=== PATIENT | female | born 1975 ===

== ENCOUNTER 2020-07-07 04:32 | Emergency (ER) | payer SELFPAY, OTHER ==
[2020-07-07] MEDS ORDERED: IPRATROPIUM BROM 0.5MG/2.5ML ONE (05:04)
[2020-07-07] MEDS ORDERED: predniSONE 20 MG TAB ONE (05:05)
[2020-07-07] MEDS ORDERED: ALBUTEROL 2.5 MG/3 ML NEB SOL ONE (05:05)
--- NOTE | 2020-07-07 06:48 | ER ---
Nurse's Notes [facility] Name: Alva Ritchie Age: 45 yrs Sex: Female : 1975 Arrival Date: 07/07/2020 Time: 04:35 Bed 7 Private MD: Diagnosis: Asthma Exacerbation;Bronchitis Presentation: 07/07 04:39 Chief complaint: EMS states: patient complaint of difficulty of breathing started rr5 tonight, she took albuterol puff but did not relieved. positive wheezing sound A\T\A treatment given. Coronavirus screen: Client denies travel out of the [place] in the last 14 days. congestion, cough unrelated to allergies, difficulty breathing, Client presents with at least one sign or symptom that may indicate coronavirus-19. Standard/surgical mask placed on the client. Provider contacted for isolation considerations. Ebola Screen: Patient negative for fever greater than or equal to 101.5 degrees Fahrenheit, and additional compatible Ebola Virus Disease symptoms Patient denies exposure to infectious person. Patient denies travel to an Ebola-affected area in the 21 days before illness onset. Initial Sepsis Screen: Does the patient meet any 2 criteria? HR > 90 bpm. Yes Does the patient have a suspected source of infection? Yes: Productive cough/pneumonia. Risk Assessment: Do you want to hurt yourself or someone else? Patient reports no desire to harm self or others. Onset of symptoms was July 06, 2020. Care prior to arrival: Medication(s) given: Albuterol Neb Atrovent Neb. 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 - Social history:: Smoking status: Patient reports the use of cigarette tobacco products, 5 sticks/day, Patient uses street drugs, Methamphetamine (Meth) opioids last taken apr 11, Patient/guardian denies using alcohol. Screenin:00 Abuse screen: Denies threats or abuse. Denies injuries from another. Nutritional rr5 screening: No deficits noted. Tuberculosis screening: No symptoms or risk factors identified. Fall Risk None identified. Total Santiago Fall Scale indicates No Risk (0-24 pts). Assessment: 04:39 General: Appears in no apparent distress. comfortable, Behavior is calm, cooperative, rr5 appropriate for age. 04:39 Pain: Complains of pain in chest Pain currently is 5 out of 10 on a pain scale. Quality rr5 of pain is described as aching, Pain began gradually, Is intermittent. Neuro: Level of Consciousness is awake, alert, obeys commands, Oriented to person, place, time. Cardiovascular: Reports chest pain, chest congestion Capillary refill < 3 seconds Patient's skin is warm and dry. Respiratory: Reports cough that is congestion Airway is patent Respiratory effort is even, unlabored, Respiratory pattern is regular, symmetrical. GI: No signs and/or symptoms were reported involving the gastrointestinal system. : No signs and/or symptoms were reported regarding the genitourinary system. EENT: Reports pain in throat. Derm: Skin is intact, is healthy with good turgor, Skin temperature is warm. Musculoskeletal: Circulation, motion, and sensation intact. Capillary refill < 3 seconds. 05:10 Reassessment: Patient appears in no apparent distress at this time. Patient is alert, rr5 oriented x 3, equal unlabored respirations, skin warm/dry/pink. awaiting for results. 06:03 Reassessment: Patient and/or family updated on plan of care and expected duration. Pain ea level reassessed. Patient is alert, oriented x 3, equal unlabored respirations, skin warm/dry/pink. 06:58 Reassessment: Patient and/or family updated on plan of care and expected duration. Pain ea level reassessed. Patient is alert, oriented x 3, equal unlabored respirations, skin warm/dry/pink. Discharge instruction given to patient, verbalized the understanding of instruction. 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 07:53 Reassessment: [facility] on the way to metal pickling equipment operator pt. jl7 Vital Signs: 04:39 BP 111 / 82; Pulse 95; Resp 19; Temp 97.9; Pulse Ox 99% ; Weight 63.5 kg; Height 5 ft. rr5 6 in. (167.64 cm); Pain 5/10; 05:45 BP 116 / 71; Pulse 118; Resp 18; Pulse Ox 100% on R/A; rr5 06:03 BP 122 / 72; Pulse 105; Resp 18; Pulse Ox 99% on R/A; ea 06:53 BP 112 / 71; Pulse 88; Resp 18; Pulse Ox 98% on R/A; ea 04:39 Body Mass Index 22.60 (63.50 kg, 167.64 cm) rr5 ED Course: 04:35 Patient arrived in ED. ea 04:38 Brandon Higuera, RN is Primary Nurse. rr5 04:40 Cruz Blankenship MD is Attending Physician. 7 04:45 Triage completed. rr5 04:49 Arm band placed on left wrist. rr5 05:00 Patient has correct armband on for positive identification. Bed in low position. Call rr5 light in reach. Pulse ox on. NIBP on. 05:10 Flu and/or RSV swab sent to lab. Strep swab sent to lab. rr5 05:58 No provider procedures requiring assistance completed. rr5 06:59 Patient did not have IV access during this emergency room visit. ea Administered Medications: 04:50 Not Given (Duplicate Order): Albuterol 2.5 mg Inhalation once mg2 05:07 Drug: predniSONE 60 mg Route: PO; ea 06:16 Follow up: Response: No adverse reaction rr5 05:07 Drug: Albuterol - atroVENT (3:1) (2.5 mg - 0.5 mg) 3 ml Route: Nebulizer; ea 06:16 Follow up: Response: No adverse reaction rr5 Outcome: 06:47 Discharge ordered by . [facility] 06:59 Condition: stable ea 06:59 Discharge instructions given to patient, Instructed on discharge instructions, follow up and referral plans. medication usage, Demonstrated understanding of instructions, follow-up care, medications, Prescriptions given X 3. 07:54 Discharged to Rehab Facility jl7 07:56 Patient left the ED. jl7 Signatures: Sonali Velazquez RN RN 7 Varsha Chávez RN RN ea Roque, Raymond, RN RN rr5 Cruz Blankenship MD MD 7 Jeison Hill RN mg2
--- NOTE | 2020-07-07 06:48 | EDPHYS ---
Physician Documentation [facility] Name: Alva Ritchie Age: 45 yrs Sex: Female : 1975 Arrival Date: 07/07/2020 Time: 04:35 Bed 7 Private MD: ED Physician Cruz Blankenship HPI: 07/07 04:52 This 45 yrs old Female presents to ER via EMS with complaints of Wheezing. Asthma mh7 Exacerbation.. 05:05 The patient presents to the emergency department with wheezing, Current therapy: mh7 albuterol inhaler, that began after exposure to pollen, after exposure to smoke, the patient was reported to have audible wheezing, productive cough, Pre-hospital care: Vilma wallace. Onset: The symptoms/episode began/occurred yesterday. Modifying factors: The symptoms are alleviated by inhaler, the symptoms are aggravated by pollen, smoke. Associated signs and symptoms: Pertinent negatives: chest pain, choking, fever, headache, nausea, palpitations, rash, vomiting. Severity of symptoms: At their worst the symptoms were moderate last night, in the emergency department the symptoms have improved moderately. The patient has experienced similar episodes in the past, multiple times. 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 - Social history:: Smoking status: Patient reports the use of cigarette tobacco products, 5 sticks/day, Patient uses street drugs, Methamphetamine (Meth) opioids last taken apr 11, Patient/guardian denies using alcohol. ROS: 05:05 Constitutional: Negative for fever, chills, and weight loss, Eyes: Negative for injury, mh7 pain, redness, and discharge. 05:05 Neck: Negative for injury, pain, and swelling, Cardiovascular: Negative for chest pain, palpitations, and edema, Abdomen/GI: Negative for abdominal pain, nausea, vomiting, diarrhea, and constipation, Back: Negative for injury and pain, : Negative for injury, bleeding, discharge, and swelling, MS/Extremity: Negative for injury and deformity, Skin: Negative for injury, rash, and discoloration, Neuro: Negative for headache, weakness, numbness, tingling, and seizure, Psych: Negative for depression, anxiety, suicide ideation, homicidal ideation, and hallucinations, Allergy/Immunology: Negative for hives, rash, and allergies, Endocrine: Negative for neck swelling, polydipsia, polyuria, polyphagia, and marked weight changes, Hematologic/Lymphatic: Negative for swollen nodes, abnormal bleeding, and unusual bruising. 05:05 ENT: Positive for nasal discharge, sore throat. Exam: 05:05 Constitutional: This is a well developed, well nourished patient who is awake, alert, mh7 and in no acute distress. Head/Face: Normocephalic, atraumatic. Eyes: Pupils equal round and reactive to light, extra-ocular motions intact. Lids and lashes normal. Conjunctiva and sclera are non-icteric and not injected. Cornea within normal limits. Periorbital areas with no swelling, redness, or edema. 05:05 Neck: Trachea midline, no thyromegaly or masses palpated, and no cervical lymphadenopathy. Supple, full range of motion without nuchal rigidity, or vertebral point tenderness. No Meningismus. Chest/axilla: Normal chest wall appearance and motion. Nontender with no deformity. No lesions are appreciated. Cardiovascular: Regular rate and rhythm with a normal S1 and S2. No gallops, murmurs, or rubs. Normal PMI, no JVD. No pulse deficits. 05:05 Abdomen/GI: Soft, non-tender, with normal bowel sounds. No distension or tympany. No guarding or rebound. No evidence of tenderness throughout. Back: No spinal tenderness. No costovertebral tenderness. Full range of motion. Skin: Warm, dry with normal turgor. Normal color with no rashes, no lesions, and no evidence of cellulitis. MS/ Extremity: Pulses equal, no cyanosis. Neurovascular intact. Full, normal range of motion. Neuro: Awake and alert, GCS 15, oriented to person, place, time, and situation. Cranial nerves II-XII grossly intact. Motor strength 5/5 in all extremities. Sensory grossly intact. Cerebellar exam normal. Normal gait. Psych: Awake, alert, with orientation to person, place and time. Behavior, mood, and affect are within normal limits. 05:05 ENT: External ear(s): are unremarkable, Nose: is normal, Mouth: is normal, Posterior pharynx: Airway: normal, Tonsils: are normal in appearance, Uvula: normal, swelling, is not appreciated, erythema, that is mild, exudate, is not appreciated, peritonsillar mass, is not appreciated, pooling of secretions, is not appreciated, Dental exam: normal, Voice: is normal. 05:05 Respiratory: the patient does not display signs of respiratory distress, Respirations: prolonged exhalation, that is mild, Breath sounds: rhonchi, that are mild, are scattered, wheezing: expiratory that is moderate, is heard diffusely, Respiratory rate: 18 Vital Signs: 04:39 BP 111 / 82; Pulse 95; Resp 19; Temp 97.9; Pulse Ox 99% ; Weight 63.5 kg; Height 5 ft. rr5 6 in. (167.64 cm); Pain 5/10; 05:45 BP 116 / 71; Pulse 118; Resp 18; Pulse Ox 100% on R/A; rr5 06:03 BP 122 / 72; Pulse 105; Resp 18; Pulse Ox 99% on R/A; ea 06:53 BP 112 / 71; Pulse 88; Resp 18; Pulse Ox 98% on R/A; ea 04:39 Body Mass Index 22.60 (63.50 kg, 167.64 cm) rr5 MDM: 04:48 Patient medically screened. mh7 06:44 Differential diagnosis: acute asthma, exercise-induced asthma, reactive airway, URI. mh7 Data reviewed: vital signs, nurses notes, radiologic studies, plain films. Data interpreted: Pulse oximetry: on room air is 99 %. Interpretation: normal. Counseling: I had a detailed discussion with the patient and/or guardian regarding: the historical points, exam findings, and any diagnostic results supporting the discharge/admit diagnosis, radiology results, the need for outpatient follow up, to return to the emergency department if symptoms worsen or persist or if there are any questions or concerns that arise at home. Response to treatment: the patient's symptoms have resolved after treatment, the patient's blood pressure is in an acceptable range, mental status has returned to baseline, the patient no longer shows bradycardia, the patient is not short of breath, the patient is not tachycardic, the patient's pain is gone, the patient's temperature has normalized. 07/07 04:48 Order name: Flu 07/07 04:48 Order name: Strep 07/07 04:48 Order name: XRAY Chest (1 view) 07/07 07:21 Order name: Group A Streptococcus Rapid Sc [facility] 07/07 07:23 Order name: Influenza Screen (A [facility] 07/07 07:32 Order name: RAD EDID Administered Medications: 04:50 Not Given (Duplicate Order): Albuterol 2.5 mg Inhalation once mg2 05:07 Drug: predniSONE 60 mg Route: PO; ea 06:16 Follow up: Response: No adverse reaction rr5 05:07 Drug: Albuterol - atroVENT (3:1) (2.5 mg - 0.5 mg) 3 ml Route: Nebulizer; ea 06:16 Follow up: Response: No adverse reaction rr5 Disposition: 07/07/20 06:47 Discharged to Home. Impression: Asthma Exacerbation, Bronchitis. - Condition is Stable. - Discharge Instructions: Acute Bronchitis, [id number], Asthma, Adult, [id number]. - Prescriptions for Zithromax Z- Dusty 250 mg Oral Tablet - take 1 tablet by ORAL route as directed for 5 days Day 1 - take two (2) tablets one time. Day 2, 3, 4 , 5 take one (1) tablet once daily.; 6 tablet. Prednisone 20 mg Oral Tablet - take 2 tablet by ORAL route once daily for 5 days; 10 tablet. Albuterol Sulfate 90 mcg/actuation - inhale 1-2 puff by INHALATION route every 4-6 hours; 1 Inhaler. - Medication Reconciliation Form, Thank You Letter, Antibiotic Education, Prescription Opioid Use form. - Follow up: Private Physician; When: 1 - 2 days; Reason: Worsening of condition, Recheck today's complaints, Continuance of care, Re-evaluation by your physician. - Problem is an acute exacerbation. - Symptoms have improved. Signatures: Dispatcher [employer] EDMS Sonali Velazquez RN RN jl7 Varsha Chávez RN RN ea Brandon Higuera RN RN rr5 Cruz Blankenship MD MD 7 Jeison Hill RN mg2 Corrections: (The following items were deleted from the chart) 07:56 06:47 07/07/2020 06:47 Discharged to Home. Impression: Asthma Exacerbation; Bronchitis. jl7 Condition is Stable. Forms are Medication Reconciliation Form, Thank You Letter, Antibiotic Education, Prescription Opioid Use. Follow up: Private Physician; When: 1 - 2 days; Reason: Worsening of condition, Recheck today's complaints, Continuance of care, Re-evaluation by your physician. Problem is an acute exacerbation. Symptoms have improved. 7
--- NOTE | 2020-07-07 07:31 | RAD REPORT ---
EXAM DESCRIPTION: RAD - Chest Single View - 07/07/2020 5:02 am CLINICAL HISTORY: CONGESTION, difficulty breathing, wheezing COMPARISON: None TECHNIQUE: AP portable chest image was obtained 07/07/2020 5:02 am . FINDINGS: Lungs are clear. Heart and vasculature are normal. No measurable pleural effusion and no p neumothorax. No acute bony abnormality seen. No acute aortic findings suspected. IMPRESSION: No acute cardiopulmonary process.
[2020-07-07 08:04] VITALS: TEMP 97.9
[2020-07-07 08:09] VITALS: BP 112/71; O2SAT 98
== END 2020-07-07 07:56 | disposition home or self-care (01) ==
LOC: ER 04:32
DX: J45.901 Unspecified asthma with (acute) exacerbation (principal); F17.210 Nicotine dependence, cigarettes, uncomplicated; Z88.2 Allergy status to sulfonamides
CPT/HCPCS: 71045; 87070; 87081; 87804; 99284; J7512